=== PATIENT | female | born 1985 | race African-American/Black ===

== ENCOUNTER 2018-02-05 23:06 | Emergency (ER) | payer BC | END 2018-02-06 00:15 | disposition home or self-care (01) | LOC: ER 02-06 00:15 | DX: L02.415 Cutaneous abscess of right lower limb (principal) | CPT/HCPCS: 99283 ==

== ENCOUNTER → 2018-10-17 | Outpatient (CLI) | payer BC ==
[2018-02-05 23:40] VITALS: BP 120/67
[~2018-10-17] MED LIST: CEPH500C PO; SULF1TAB24 PO; TRAM50TA PO
[2018-10-17 11:38] LABS: BASO # 0.1 x10^3/uL (0.0-0.2); BASO % 1 % (0-3); EOS # 0.1 x10^3/uL (0.0-0.7); EOS % 1 % (0-3); HEMATOCRIT 33.9 % (36.0-47.0); HEMOGLOBIN 11.1 g/dL (12.0-15.5); LYMPH # 2.8 x10^3/uL (1.0-4.8); LYMPH % 30 % (24-48); MEAN CORPUSCULAR HEMOGLOBIN 25 pg (25-35); MEAN CORPUSCULAR HGB CONC 33 g/dL (31-37); MEAN CORPUSCULAR VOLUME 77 fL (79-100); MONO # 0.5 x10^3/uL (0.0-1.1); MONO % 5 % (0-9); NEUT % 63 % (31-73); PLATELET COUNT 246 x10^3/uL (140-400); RED BLOOD COUNT 4.43 x10^6/uL (3.50-5.40); RED CELL DISTRIBUTION WIDTH 18.3 % (11.5-14.5); WHITE BLOOD COUNT 9.6 x10^3/uL (4.0-11.0)
== END | disposition home or self-care (01) ==
LOC: LAB 11:16
PROVIDERS: ATTEND Physician Assistant
DX: L73.2 Hidradenitis suppurativa (principal)
CPT/HCPCS: 36415; 84702; 85025

== ENCOUNTER 2019-03-11 13:26 | Emergency (ER) | payer BC ==
[~2019-03-11] VITALS: Ht 177.8 cm; Wt 113.4 kg
[2019-03-11 13:48] VITALS: BP 115/71
--- NOTE | 2019-03-11 15:17 | RAD ---
Three-view study of the right foot Clinical indications: Right foot pain at base of great toe from wearing high heels. FINDINGS: No acute fracture or dislocation or lytic process is evident. Prominent plantar spur of the calcaneus is seen. Mild hallucis valgus deformity and small medial exostosis of the distal first metatarsal is seen. IMPRESSION: Small bunion with overlying mild medial soft tissue swelling. No acute fracture. Plantar spur of the calcaneus. Electronically signed by: Quang Lott MD (03/11/2019 3:14 PM) [place] [id number]
--- NOTE | 2019-03-11 15:58 | PHYS DOC ---
Past Medical History Past Medical History: STD, Other Additional Past Medical Histor: HERPES Past Surgical History: No Surgical History Alcohol Use: Occasionally Drug Use: Marijuana Adult General Chief Complaint Chief Complaint: TOE PROBLEM HPI HPI 34 y/o female presents via POV to ER for c/o rt great toe and inner side of rt foot pain which she reports she woke up this morning having. She reports last night she wore new heels and went dancing and had no sxs last night. She denies any injury. She denies wounds. She reports she has been ambulatory but does have increased pain w/walking and weight bearing on rt foot. She reports she feels her inner side of right foot and great toe are swollen. LMP 02/13/19. Review of Systems Review of Systems Constitutional: Denies fever or chills [] Respiratory: Denies cough or shortness of breath [] Cardiovascular: No additional information not addressed in HPI [] GI: Denies nausea, vomiting Musculoskeletal: Reports rt inner foot/great toe pain Integument: Denies rash or skin lesions [] Neurologic: Denies focal weakness or sensory changes. Denies numbness/tingling All other systems were reviewed and found to be within normal limits, except as documented in this note. Allergies Allergies Allergies Coded Allergies Type Severity Reaction Last Updated Verified No Known Drug Allergies 12/23/14 No Physical Exam Physical Exam Constitutional: Well developed, well nourished, no acute distress, non-toxic appearance. [] HENT: Normocephalic, atraumatic, oropharynx moist Eyes: Pupils equal, conjunctiva normal, no discharge. [] Neck: Normal range of motion, supple Cardiovascular:Heart rate regular Lungs & Thorax: Resp. equal/nonlabored Skin: Warm, dry, no erythema, no rash. [] Extremities: No cyanosis, no clubbing, ROM intact. 2+ bilat. dorsalis pedis. Calf size symmetric bilat. nontender. Tender on palp. medial side of rt foot into rt great toe- swelling without ecchymosis/erythema. No wounds on rt foot. No tenderness on calcaneus. Lt lower extremity NL exam nontender Neurologic: Alert and oriented X 3, normal motor function, normal sensory function, no focal deficits noted. [] Psychologic: Affect normal, judgement normal, mood normal. [] Current Patient Data Vital Signs Vital Signs Date Time Temp Pulse Resp B/P (MAP) Pulse Ox O2 Delivery O2 Flow Rate FiO2 03/11/19 13:48 98.0 89 16 115/71 (86) 99 Room Air 98.0 EKG EKG [] Radiology/Procedures Radiology/Procedures PROCEDURE: FOOT RIGHT 3V Three-view study of the right foot Clinical indications: Right foot pain at base of great toe from wearing high heels. FINDINGS: No acute fracture or dislocation or lytic process is evident. Prominent plantar spur of the calcaneus is seen. Mild hallucis valgus deformity and small medial exostosis of the distal first metatarsal is seen. IMPRESSION: Small bunion with overlying mild medial soft tissue swelling. No acute fracture. Plantar spur of the calcaneus. Electronically signed by: Ayala Lott MD (03/11/2019 3:14 PM) [place] [id number] DICTATED and SIGNED BY: AYALA LOTT MD DATE: 03/11/19 151 Course & Med Decision Making Course & Med Decision Making Pertinent Imaging studies reviewed. (See chart for details) Pt was evaluated in the ER for c/o rt foot/great toe pain after a night of dancing and wearing new heels. Xray of rt foot with reports of sm. bunion overlying medial soft tissue swelling, bone spur on calcaneus otherwise no acute findings. Pt had no tenderness on palp. of calcaneus. Xray results were discussed with pt along with discharge plan. Pt had no hx of gout and exam neg. for erythema. Pt will have spencer wrap and post op shoe applied prior to d/c. Discussed if sxs persist f/u with orthopedic doctor or podiatry advised for further care. Pt was offered tylenol/ibuprofen while in the ER and preferred no meds. She remains PMS intact on re-eval in rt lower extremity and has been ambulatory with steady unassisted gait. Education provided on s&s to return to ER for and d/c instructions were discussed. Derrick Disclaimer Derrick Disclaimer This electronic medical record was generated, in whole or in part, using a voice recognition dictation system. Departure Departure Impression: Primary Impression: Foot pain, right Additional Impression: Bunion of great toe of right foot Disposition: 01 HOME, SELF-CARE Condition: STABLE Referrals: NO PCP (PCP) Patient Instructions: Bunion (Hallux Valgus)-SportsMed Additional Instructions: Wear the Spencer wrap and use the postop shoe for support for your right foot pain. You can try [id number] bunion support for additional pain relief. If symptoms persist follow-up with orthopedics or podiatry for further care and reevaluation. Tylenol and/or ibuprofen as needed for pain relief as directed on container. Problem Qualifiers RAJ VAZQUEZ APRN Mar 11, 2019 15:58
== END 2019-03-11 16:04 | disposition home or self-care (01) ==
LOC: ER 13:26
DX: M21.611 Bunion of right foot (principal); M77.31 Calcaneal spur, right foot
CPT/HCPCS: 73630; 99284

== ENCOUNTER → 2019-07-08 | Outpatient (CLI) | payer BC ==
[2019-07-08 11:34] LABS: BASO % 0 % (0-3); EOS # 0.1 x10^3/uL (0.0-0.7); EOS % 1 % (0-3); HEMATOCRIT 30.6 % (36.0-47.0); HEMOGLOBIN 10.2 g/dL (12.0-15.5); LYMPH # 2.7 x10^3/uL (1.0-4.8); LYMPH % 29 % (24-48); MEAN CORPUSCULAR HEMOGLOBIN 26 pg (25-35); MEAN CORPUSCULAR HGB CONC 33 g/dL (31-37); MEAN CORPUSCULAR VOLUME 79 fL (79-100); MONO # 0.5 x10^3/uL (0.0-1.1); MONO % 5 % (0-9); NEUT # 5.8 x10^3/uL (1.8-7.7); NEUT % 64 % (31-73); PLATELET COUNT 277 x10^3/uL (140-400); RED BLOOD COUNT 3.87 x10^6/uL (3.50-5.40); RED CELL DISTRIBUTION WIDTH 16.1 % (11.5-14.5); WHITE BLOOD COUNT 9.1 x10^3/uL (4.0-11.0)
[2019-07-08 12:28] LABS: ALBUMIN 2.9 g/dL (3.4-5.0); DIRECT BILIRUBIN 0.1 mg/dL (0.0-0.2); TOTAL BILIRUBIN 0.5 mg/dL (0.2-1.0); TOTAL PROTEIN 8.7 g/dL (6.4-8.2)
== END | disposition home or self-care (01) ==
LOC: LAB 11:10
PROVIDERS: ATTEND Physician Assistant
DX: L73.2 Hidradenitis suppurativa (principal)
CPT/HCPCS: 36415; 80076; 85025

== ENCOUNTER → 2019-12-01 | Outpatient (CLI) | payer BC ==
[2019-12-01 12:08] LABS: BASO # 0.1 x10^3/uL (0.0-0.2); BASO % 1 % (0-3); EOS # 0.2 x10^3/uL (0.0-0.7); EOS % 1 % (0-3); HEMATOCRIT 31.3 % (36.0-47.0); HEMOGLOBIN 10.1 g/dL (12.0-15.5); LYMPH # 2.7 x10^3/uL (1.0-4.8); LYMPH % 20 % (24-48); MEAN CORPUSCULAR HEMOGLOBIN 25 pg (25-35); MEAN CORPUSCULAR HGB CONC 32 g/dL (31-37); MEAN CORPUSCULAR VOLUME 77 fL (79-100); MONO # 0.7 x10^3/uL (0.0-1.1); MONO % 5 % (0-9); NEUT # 9.7 x10^3/uL (1.8-7.7); NEUT % 73 % (31-73); PLATELET COUNT 317 x10^3/uL (140-400); RED BLOOD COUNT 4.08 x10^6/uL (3.50-5.40); RED CELL DISTRIBUTION WIDTH 17.5 % (11.5-14.5); WHITE BLOOD COUNT 13.3 x10^3/uL (4.0-11.0)
[2019-12-01 12:26] LABS: ALBUMIN 2.9 g/dL (3.4-5.0); DIRECT BILIRUBIN 0.1 mg/dL (0.0-0.2); TOTAL BILIRUBIN 0.2 mg/dL (0.2-1.0); TOTAL PROTEIN 9.1 g/dL (6.4-8.2)
== END | disposition home or self-care (01) ==
LOC: LAB 11:43
PROVIDERS: ATTEND Physician Assistant
DX: L73.2 Hidradenitis suppurativa (principal)
CPT/HCPCS: 36415; 80076; 85025; 86481

== ENCOUNTER → 2020-06-30 | Outpatient (CLI) | payer BC ==
--- NOTE | 2020-06-30 16:16 | RAD ---
AP and Lateral Views of the Chest 06/30/2020 12:00 AM Indication: Reason: HIDRADENITIS SUPPURATIVE. SWITCHING MEDICATIONS. / Spl. Instructions: / History: Comparison: Suppurative hidradenitis Findings: There is no focal consolidation or infiltrate identified. The cardiomediastinal silhouette is within normal limits. There is no evidence of pneumothorax or pleural effusion. No acute osseous abnormalities are identified. Impression: No evidence of acute cardiopulmonary process. Electronically signed by: Fabian Zabala MD (06/30/2020 4:13 PM) [id number]
== END | disposition home or self-care (01) ==
LOC: RAD 14:51
DX: L73.2 Hidradenitis suppurativa (principal)
CPT/HCPCS: 71046

== ENCOUNTER → 2020-07-14 | Outpatient (CLI) | payer BC ==
[2020-07-14 15:19] LABS: ALBUMIN 2.4 g/dL (3.4-5.0); ALBUMIN/GLOBULIN RATIO 0.3 (1.0-1.7); CALCIUM 8.7 mg/dL (8.5-10.1); CREATININE 0.8 mg/dL (0.6-1.0); GFR 98.8; POTASSIUM 4.2 mmol/L (3.5-5.1); TOTAL BILIRUBIN 0.2 mg/dL (0.2-1.0); TOTAL PROTEIN 9.6 g/dL (6.4-8.2)
== END ==
LOC: LAB 14:07
PROVIDERS: ATTEND Physician Assistant
DX: L73.2 Hidradenitis suppurativa (principal)
CPT/HCPCS: 36415; 80053

== ENCOUNTER 2020-07-19 17:43 | Emergency (ER) | payer BC ==
[~2020-07-19] VITALS: Ht 177.8 cm; Wt 107.2 kg
[2020-07-19] MEDS ORDERED: IV NORMAL SALINE 1000ML BAG 1,000 ML IV ONE (18:45)
[2020-07-19 18:59] LABS: BASO % 0 % (0-3); EOS # 0.2 x10^3/uL (0.0-0.7); EOS % 1 % (0-3); HEMATOCRIT 25.4 % (36.0-47.0); HEMOGLOBIN 8.3 g/dL (12.0-15.5); LYMPH # 2.2 x10^3/uL (1.0-4.8); LYMPH % 16 % (24-48); MEAN CORPUSCULAR HEMOGLOBIN 23 pg (25-35); MEAN CORPUSCULAR HGB CONC 33 g/dL (31-37); MEAN CORPUSCULAR VOLUME 72 fL (79-100); MONO # 0.7 x10^3/uL (0.0-1.1); MONO % 5 % (0-9); NEUT # 10.5 x10^3/uL (1.8-7.7); NEUT % 77 % (31-73); PLATELET COUNT 418 x10^3/uL (140-400); RED BLOOD COUNT 3.54 x10^6/uL (3.50-5.40); RED CELL DISTRIBUTION WIDTH 18.7 % (11.5-14.5); WHITE BLOOD COUNT 13.6 x10^3/uL (4.0-11.0)
[2020-07-19 19:10] LABS: CALCIUM 8.7 mg/dL (8.5-10.1); CREATININE 0.8 mg/dL (0.6-1.0); GFR 98.8; POTASSIUM 3.3 mmol/L (3.5-5.1)
[2020-07-19] MEDS ORDERED: ASPIRIN 325 MG TABLET PO ONE (19:15)
[2020-07-19 19:16] LABS: ALBUMIN 2.3 g/dL (3.4-5.0); ALBUMIN/GLOBULIN RATIO 0.3 (1.0-1.7); MAGNESIUM 1.9 mg/dL (1.8-2.4); TOTAL BILIRUBIN 0.2 mg/dL (0.2-1.0); TOTAL PROTEIN 10.2 g/dL (6.4-8.2)
[2020-07-19 19:17] LABS: PLT ESTIMATE INCREASED (ADEQUATE)
[2020-07-19 19:18] LABS: ANISOCYTOSIS SLIGHT; HYPOCHROMIA SLIGHT; POIKILOCYTOSIS SLIGHT
[2020-07-19 19:19] LABS: MICROCYTOSIS PRESENT
--- NOTE | 2020-07-19 19:51 | PHYS DOC ---
Past Medical History Past Medical History: STD, Other Additional Past Medical Histor: HERPES Past Surgical History: No Surgical History Smoking Status: Never Smoker Alcohol Use: Occasionally Drug Use: Marijuana General Adult EDM: Chief Complaint: CHEST PAIN HPI: HPI: Mrs. Rowan is a 35-year-old -[place] female who presents with a one-week history of chest pain. She describes this pain as constant but variable. Her pain is at least a 5 out of 10 and spikes to 10 out of 10. Episodes seem to be triggered by certain positions particularly rolling over in bed because of increased pain. She reports no alleviating factors, with ibuprofen only giving no relief. She reports that her chest pain is not associated with exertion. She describes the pain as a sharp substernal chest pain. Patient denies any history of GERD. Patient does report a vague history of having bilateral back pain, and having a unilateral calf episode of calf pain that resolved 1 year ago . Past medical history: Sickle cell trait, hydroadneitis Supprtiva follows with dermatology. Patient follows with a locomotive firer for chronic anemia. Past surgical history: None Family history: 1 older sister with sickle cell disease. Review of Systems: Review of Systems: Constitutional: Denies fever or chills Eyes: Denies redness or eye pain, HENT: Denies nasal congestion or sore throat Respiratory: Denies cough or shortness of breath denies any sick contacts. Cardiovascular: Denies chest pain or palpitations GI: Denies abdominal pain, nausea, or vomiting : Denies dysuria or hematuria Musculoskeletal: Denies back pain or joint pain Integument: Denies rash or skin lesions Neurologic: Denies headache, focal weakness or sensory changes Complete systems were reviewed and found to be within normal limits, except as documented in this note. Heart Score: HEART Score for Chest Pain: HEART Score for Chest Pain Response (Comments) Value History Slighlty/Non-Suspicious 0 ECG Normal 0 Age < 45 0 Risk Factors 1 or 2 Risk Factors 1 Troponin < Normal Limit 0 Total 1 Risk Factors: Risk Factors: DM, Current or recent (<one month) smoker, HTN, HLP, family hi story of CAD, obesity. Risk Scores: Score 0 - 3: 2.5% MACE over next 6 weeks - Discharge Home Score 4 - 6: 20.3% MACE over next 6 weeks - Admit for Clinical Observation Score 7 - 10: 72.7% MACE over next 6 weeks - Early Invasive Strategies Current Medications: Current Medications Medications (Trade) Dose Ordered Sig/[facility] Start Time Stop Time Status Last Admin Dose Admin Aspirin (Rudy Aspirin) 325 mg 1X ONCE 07/19/20 19:15 07/19/20 19:16 DC 07/19/20 19:00 325 MG Sodium Chloride 1,000 ml @ 1,000 mls/hr 1X ONCE 07/19/20 18:45 07/19/20 19:44 07/19/20 18:59 1,000 MLS/HR Allergies: Allergies: Allergies Coded Allergies Type Severity Reaction Last Updated Verified No Known Drug Allergies 12/23/14 No Physical Exam: PE: Constitutional: Well developed, well nourished, no acute distress, non-toxic appearance HENT: Normocephalic, atraumatic. Cranial nerves II through XII grossly intact bilaterally. Eyes: PERRL, EOMI, conjunctiva normal, no discharge Neck: Normal range of motion, no tenderness, supple, no carotid bruit Lungs & Thorax: Bilateral breath sounds clear to auscultation, no wheezing Heart: Regular rate and rhythm no murmurs. S1-S2 normal, S3 and S4 not present. Abdomen: Soft, no tenderness. Bowel sounds present all 4 quadrants. Skin: Warm, dry, no erythema, no rash. Patient has extensive infectious cysts, seem to be draining bilaterally on her chest located in the folds beneath her breasts. These are very tender to palpation however she describes this pain as different than the chest pain she is experiencing. Back: No tenderness, no CVA tenderness Extremities: No tenderness, ROM intact, no edema. 2+ pulses in all 4 extremities. Neurologic: Alert and oriented X 3, normal motor function, normal sensory function, no focal deficits noted Psychologic: Affect normal, judgment normal Current Patient Data: Labs: Laboratory Tests Test 07/19/20 18:50 White Blood Count 13.6 x10^3/uL (4.0-11.0) H Red Blood Count 3.54 x10^6/uL (3.50-5.40) Hemoglobin 8.3 g/dL (12.0-15.5) L Hematocrit 25.4 % (36.0-47.0) L Mean Corpuscular Volume 72 fL (79-100) L Mean Corpuscular Hemoglobin 23 pg (25-35) L Mean Corpuscular Hemoglobin Concent 33 g/dL (31-37) Red Cell Distribution Width 18.7 % (11.5-14.5) H Platelet Count 418 x10^3/uL (140-400) H Neutrophils (%) (Auto) 77 % (31-73) H Lymphocytes (%) (Auto) 16 % (24-48) L Monocytes (%) (Auto) 5 % (0-9) Eosinophils (%) (Auto) 1 % (0-3) Basophils (%) (Auto) 0 % (0-3) Neutrophils # (Auto) 10.5 x10^3/uL (1.8-7.7) H Lymphocytes # (Auto) 2.2 x10^3/uL (1.0-4.8) Monocytes # (Auto) 0.7 x10^3/uL (0.0-1.1) Eosinophils # (Auto) 0.2 x10^3/uL (0.0-0.7) Basophils # (Auto) 0.0 x10^3/uL (0.0-0.2) Platelet Estimate Increased (ADEQUATE) Hypochromasia Slight Poikilocytosis Slight Anisocytosis Slight Microcytosis Present D-Dimer (Louise) 3.32 ug/mlFEU (0.00-0.50) H Sodium Level 133 mmol/L (136-145) L Potassium Level 3.3 mmol/L (3.5-5.1) L Chloride Level 100 mmol/L (98-107) Carbon Dioxide Level 28 mmol/L (21-32) Anion Gap 5 (6-14) L Blood Urea Nitrogen 9 mg/dL (7-20) Creatinine 0.8 mg/dL (0.6-1.0) Estimated GFR (Cockcroft-Gault) 98.8 BUN/Creatinine Ratio 11 (6-20) Glucose Level 100 mg/dL (70-99) H Calcium Level 8.7 mg/dL (8.5-10.1) Magnesium Level 1.9 mg/dL (1.8-2.4) Total Bilirubin 0.2 mg/dL (0.2-1.0) Aspartate Amino Transferase (AST) 13 U/L (15-37) L Alanine Aminotransferase (ALT) 14 U/L (14-59) Alkaline Phosphatase 60 U/L (46-116) Troponin I Quantitative < 0.017 ng/mL (0.000-0.055) EL-Aww-P-Type Natriuretic Peptide 247 pg/mL (0-124) H Total Protein 10.2 g/dL (6.4-8.2) H Albumin 2.3 g/dL (3.4-5.0) L Albumin/Globulin Ratio 0.3 (1.0-1.7) L Lipase 45 U/L (73-393) L Laboratory Tests 07/19/20 18:50 Laboratory Tests 07/19/20 18:50 Vital Signs: Vital Signs Date Time Temp Pulse Resp B/P (MAP) Pulse Ox O2 Delivery O2 Flow Rate FiO2 07/19/20 18:27 88 18 121/77 (92) 97 Room Air EKG: EKG: @1754 NSR at 95bpm, NO ST elevation, QRS 84ms, QT/QTc 344/435ms Radiology/Procedures: Radiology/Procedures: PROCEDURE: CT ANGIOGRAPHY CHEST Exam: CT of chest with contrast INDICATION: Chest pain TECHNIQUE: Sequential axial images through the chest obtained following the administration 100 mL of Omni 350 IV contrast. Sagittal and coronal reformatted images were reconstructed from the axial data and reviewed. Comparisons: None FINDINGS: Visualized portions of the thyroid are unremarkable. No enlarged mediastinal lymph nodes are identified. Heart size is normal. No pericardial effusion. Thoracic aorta has a normal course and caliber. Pulmonary artery is not enlarged. No pulmonary embolus identified within the main or lobar pulmonary arteries. Evaluation distally is limited secondary to contrast bolus timing. Airways are patent. No consolidation or pneumothorax. No suspicious osseous lesions or acute fractures. No pleural effusion or thickening. Visualized upper abdomen is unremarkable. No suspicious osseous lesions or acute fractures. IMPRESSION: No pulmonary embolus identified within the main or lobar pulmonary arteries. Exposure: One or more of the following in the visualized dose reduction techniques were utilized for this examination: 1. Automated exposure control 2. Adjustment of the MA and/or KV according to patient size 3. Use of iterative of reconstructive technique Electronically signed by: Chaya Courtney MD (07/19/2020 8:50 PM) [id number] Course & Med Decision Making: Course & Med Decision Making Differential diagnosis: Sickle cell trait/acute chest syndrome. Dragon Disclaimer: Dragon Disclaimer: This electronic medical record was generated, in whole or in part, using a voice recognition dictation system. Departure Departure Impression: Primary Impression: Chest pain Qualified Codes: R07.9 - Chest pain, unspecified Additional Impression: Hidradenitis suppurativa Disposition: HOME, SELF-CARE Condition: STABLE Referrals: TIM BROWNING APRN (PCP) HEIDI ROYAL MD Patient Instructions: Chest Pain (Nonspecific), [id number], Hidradenitis Suppurativa, Sweat Gland Abscess Scripts Mupirocin (MUPIROCIN OINTMENT) 22 Gm Oint...g. 1 KRISTAL TP TID for WOUND CARE, #1 TUBE Prov: LALY VALLES DO 07/19/20 Clindamycin Hcl (CLINDAMYCIN HCL) 300 Mg Capsule 1 CAP PO TID for Infection for 7 Days, #21 CAP Prov: LALY VALLES DO 07/19/20 Justicifation of Admission Dx: Justifications for Admission: Justification of Admission Dx: N/A LALY VALLES DO Jul 19, 2020 19:51
[2020-07-19] MEDS ORDERED: IOHEXOL 350 MG/ML 100 ML VIAL. IV ONE (20:00)
[2020-07-19] MEDS ORDERED: CONTRAST GIVEN. MC PRN (20:00)
[2020-07-19 20:14] LABS: BILIRUBIN,URINE NEGATIVE (NEG); CLARITY,URINE CLEAR; COLOR,URINE YELLOW; NITRITE,URINE NEGATIVE (NEG); PROTEIN,URINE NEGATIVE (NEG-TRACE); UROBILINOGEN,URINE 0.2 mg/dL (0.2 mg/dL)
[2020-07-19] MEDS ORDERED: POTASSIUM CHLORIDE 20 MEQ TABLET.ER. PO ONE (20:15)
[2020-07-19 20:18] LABS: SQUAMOUS EPITHELIAL CELL,UR MOD /LPF
[2020-07-19 20:19] LABS: TRICHOMONAS,URINE PRESENT
[2020-07-19 20:20] LABS: BACTERIA,URINE FEW /HPF (0-FEW); RBC,URINE OCC /HPF (0-2)
--- NOTE | 2020-07-19 20:52 | RAD ---
Exam: CT of chest with contrast INDICATION: Chest pain TECHNIQUE: Sequential axial images through the chest obtained following the administration 100 mL of Omni 350 IV contrast. Sagittal and coronal reformatted images were reconstructed from the axial data and reviewed. Comparisons: None FINDINGS: Visualized portions of the thyroid are unremarkable. No enlarged mediastinal lymph nodes are identified. Heart size is normal. No pericardial effusion. Thoracic aorta has a normal course and caliber. Pulmonary artery is not enlarged. No pulmonary embolus identified within the main or lobar pulmonary arteries. Evaluation distally is limited secondary to contrast bolus timing. Airways are patent. No consolidation or pneumothorax. No suspicious osseous lesions or acute fractures. No pleural effusion or thickening. Visualized upper abdomen is unremarkable. No suspicious osseous lesions or acute fractures. IMPRESSION: No pulmonary embolus identified within the main or lobar pulmonary arteries. Exposure: One or more of the following in the visualized dose reduction techniques were utilized for this examination: 1. Automated exposure control 2. Adjustment of the MA and/or KV according to patient size 3. Use of iterative of reconstructive technique Electronically signed by: Chaya Courtney MD (07/19/2020 8:50 PM) [id number]
[2020-07-19] MEDS ORDERED: CLIN300C8 PO (22:22)
[2020-07-19] MEDS ORDERED: MUPI22OI2 TP (22:22)
[2020-07-19] MEDS ORDERED: CLINDAMYCIN HCL 150 MG CAPSULE. PO ONE (23:00)
[2020-07-19 23:06] VITALS: BP 127/73
--- NOTE | 2020-07-20 07:32 | EKG ---
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
== END 2020-07-19 23:12 | disposition home or self-care (01) ==
LOC: ER 17:43
DX: R07.89 Other chest pain (principal); L73.2 Hidradenitis suppurativa
CPT/HCPCS: 36415; 71275; 80053; 81001; 81025; 83690; 83735; 83880; 84484; 85025; 85379; 87086; 93005; 96360; 96361; 99285; J7030; Q9967

== ENCOUNTER 2020-09-28 03:40 | Emergency (ER) | payer BC ==
[~2020-09-28] VITALS: Ht 177.8 cm; Wt 104.5 kg
[~2020-09-28 03:40] MED LIST changes: +CLIN300C8 PO; +MUPI22OI2 TP
[2020-09-28 03:45] VITALS: BP 144/86
[2020-09-28] MEDS ORDERED: CYCL10TA2 PO ×2 (04:14→04:31)
--- NOTE | 2020-09-28 04:16 | PHYS DOC ---
Past Medical History Past Medical History: No Pertinent History Additional Past Medical Histor: HERPES, sickle cell trait Past Surgical History: No Surgical History Smoking Status: Never Smoker Alcohol Use: None Drug Use: Marijuana General Adult EDM: Chief Complaint: WRIST PAIN HPI: HPI: 35-year-old female past medical history significant for hidradenitis suppurativa, recently started on Remicade by her services executive, presents to the ED with complaints of left wrist pain and swelling that started earlier today, patient states she has been unable to sleep and had no relief with ibuprofen. Patient states for the past few days she initially had right wrist swelling that has now moved to the left side (right wrist pain has resolved). Patient is right-hand dominant. Called her services executive office and was told this is a common side effect of her Remicade, to apply heating pads, [id number] analgesia and return to ED if pain worsens. Remicade is monthly IV injections, last given 09/21. No prior history of septic joint, gout, pseudogout. No history of prior joint pain. No associated trauma, neck pain or radiculopathy. No abnormal vaginal discharge, dysuria or hematuria or concern for STI. No FH neurologic diseases. Review of Systems: Review of Systems: Constitutional: Denies fever or chills. [] Eyes: Denies change in visual acuity. [] HENT: Denies nasal congestion or sore throat. [] Respiratory: Denies cough or shortness of breath. [] Cardiovascular: Denies chest pain or edema. [] GI: Denies abdominal pain, nausea, vomiting, bloody stools or diarrhea. [] : Denies dysuria. [] Musculoskeletal: Denies back pain or left shoulder midline neck pain Integument: Denies rash. [] Neurologic: Denies headache, focal weakness or sensory changes. [] Endocrine: Denies polyuria or polydipsia. [] Lymphatic: Denies swollen glands. [] Psychiatric: Denies depression or anxiety. [] Heart Score: Risk Factors: Risk Factors: DM, Current or recent (<one month) smoker, HTN, HLP, family history of CAD, obesity. Risk Scores: Score 0 - 3: 2.5% MACE over next 6 weeks - Discharge Home Score 4 - 6: 20.3% MACE over next 6 weeks - Admit for Clinical Observation Score 7 - 10: 72.7% MACE over next 6 weeks - Early Invasive Strategies Allergies: Allergies: Allergies Coded Allergies Type Severity Reaction Last Updated Verified No Known Drug Allergies 12/23/14 No Physical Exam: PE: Constitutional: Well developed, well nourished, no acute distress, non-toxic appearance. [] HENT: Normocephalic, atraumatic, Eyes:EOMI, conjunctiva normal, Neck: Normal range of motion, supple, Cardiovascular: S1 and S2 present Lungs & Thorax: Speaking in full sentences, bilateral equal chest rise Skin: Warm, dry, no erythema, no rash or crepitus Extremities: pain over left dorsal wrist and left thumb tendon or thumb with flexion extension and Shahzad's test, some wrist edema, ttp over left mcps- no effusions, left thumb in adduction, pain with abduction, no radicular pain, no localized pain in snuffbox or or lunate-wrist pain is diffuse Vascular: Equal radial pulses, normal skin turgor, equal warmth Neurologic: Alert and oriented X 3, normal motor function, normal sensory function, no focal deficits noted. [] Psychologic: Affect normal, judgement normal, mood normal. [] Current Patient Data: Vital Signs: Vital Signs Date Time Temp Pulse Resp B/P (MAP) Pulse Ox O2 Delivery O2 Flow Rate FiO2 09/28/20 03:45 98.3 55 13 144/86 (105) 100 Room Air 98.3 EKG: EKG: [] Radiology/Procedures: Radiology/Procedures: []IMAGING REPORT Signed PATIENT: ANGELICA VIRGEN ACCOUNT: [id number] : 1985 LOCATION: ER AGE: 35 SEX: F EXAM STATUS: DEP ER ORD. PHYSICIAN: RAJ CANTU DO REASON: wrist stiffness PROCEDURE: WRIST 3V LEFT Study: CR WRIST 3V LEFT Indication: Wrist stiffness. Comparison: None. Findings: No acute fracture. No traumatic malalignment. Mild ulnar minus variance measuring approximately 3.5 mm. On the oblique and lateral views the lunate appears more sclerotic relative to the additional carpal bones but this is less notable on the PA view suggesting this appearance to be from summation artifact. The morphology of the lunate is normal. Maintained joint spaces. Unremarkable soft tissues. Impression: 1. No acute osseous abnormality. 2. Mild ulnar minus variance. Correlate for symptoms of ulnar impingement. 3. The lunate appears sclerotic on the oblique and lateral views but this is favored secondary to summation artifact. Lunate morphology is normal. Note is made however that ulnar impingement can be associated with lunate avascular necrosis. If there is ongoing concern, nonemergent/outpatient MRI could be performed. Electronically signed by: TATYANA INMAN MD (09/28/2020 5:13 AM) [id number] DICTATED and SIGNED BY: TATYANA INMAN MD DATE: 09/28/20 0513 Course & Med Decision Making: Course & Med Decision Making Pertinent Labs and Imaging studies reviewed. (See chart for details) Concern for atraumatic wrist and joint pain as possible medication side effect versus de Quervain's tenosynovitis. Patient declined [place] in the ED but elected for Valium. Mother will drive her home. Wrist splint given. Will recommend Tylenol ibuprofen as needed and to discuss benefits versus adverse effects of continuing Remicade medication with services executive. Strict ED return precautions were given for fever, worsening pain or neurologic deficits. Encouraged urgent outpatient follow-up with PMD and patient's services executive. Life-threatening processes were considered but are low suspicion at this time, given history and physical exam. Pt was educated on all prescription medications and adverse effects. All patient's questions were answered and pt was stable at time of discharge. Life/limb-threatening differential includes but is not limited to, avascular necrosis, septic arthritis, malignancy, fracture/ligamentous injury/overuse, decompression sickness, seronegative spondyloarthropathies, Lyme disease, lupus, arthritis differentials, gout/pseudogout or decompression sickness. I spoken with the patient and her caregivers. I explained the patient's condition, diagnoses and treatment plan based on the information available to me at this time. I have answered the patient and her caregiver's questions and addressed any concerns. The patient and her caregivers have a good unders tanding of patient's diagnosis, condition and treatment plan as can be expected at this point. Vital signs have been stable. Patient's condition is stable and appropriate for discharge from the emergency department. Patient will pursue further outpatient evaluation with primary care physician or other designated or consulting physician as outlined in the discharge instructions. The patient and/or caregivers are agreeable to this plan of care and follow-up instructions have been explained in detail. The patient and/or caregivers have received these instructions in written form and have expressed an understanding of the discharge instructions. The patient and/or caregivers are aware that any significant change of condition or worsening of symptoms should prompt immediate return to this or the closest emergency department or call to 911. Derrick Disclaimer: Derrick Disclaimer: This electronic medical record was generated, in whole or in part, using a voice recognition dictation system. Departure Departure Impression: Primary Impression: Arthralgia of left wrist Disposition: 01 DC HOME SELF CARE/HOMELESS Condition: STABLE Referrals: TIM BROWNING APRN (PCP) in 3-5 days or in 7 days with your services executive Patient Instructions: RICE - Routine Care for Injuries, Wrist Pain, Wrist Splint Additional Instructions: EMERGENCY DEPARTMENT GENERAL DISCHARGE INSTRUCTIONS Thank you for coming to [facility] Emergency Department (ED) today and trusting us with you care. We trust that you had a positive experience in our Emergency Department. If you wish to speak to the department management, you may call the Director at [phone]. YOUR FOLLOW UP INSTRUCTIONS ARE FOLLOWS: 1. Do you have a private Doctor? If you do not have a private doctor, please ask for a resource list of physicians or clinics that may be able to assist you with follow up care. 2. The Emergency Physicain has interpreted your x-rays. The X-Ray specialist will also review them. If there is a change in the findings, you will be notified in 48 hours when at all possible. 3. A lab test or culture has been done, your results will be reviewed and you will be notified if you need a change in treatment. ADDITIONAL INSTRUCTIONS AND INFORMATION: 1. Your care today has been supervised by a physician who is specially trained in emergency care. Many problems require more than one evaluation for a complete diagnosis and treatment. We recommend that you schedule your follow up appointment as recommended to ensure complete treatment of you illness or injury. If you are unable to obtain follow up care and continue to have a problem, or if your condition worsens, we recommend that you return to the ED. 2. We are not able to safely determine your condition over the phone nor are we able to give sound medical advice over the phone. For these safety reasons, if you call for medical advice we will ask you to come to the ED for further evaluation. 3. If you have any questions regarding these discharge instructions please call the ED at [phone]. SAFETY INFORMATION: In the interest of safety, wellness, and injury prevention; we encourage you to wear your sealbelt, if you smoke; quite smoking, and we encourage family to use a protective helmet for bicycling and other sporting events that present an increased risk for head injury. IF YOUR SYMPTOMS WORSEN OR NEW SYMPTOMS DEVELOP, OR YOU HAVE CONCERNS ABOUT YOUR CONDITION; OR IF YOUR CONDITION WORSENS WHILE YOU ARE WAITING FOR YOUR FOLLOW UP APPOINTMENT; EITHER CONTACT YOUR PRIMARY CARE DOCTOR, THE PHYSICIAN WHOSE NAME AND NUMBER YOU WERE GIVEN, OR RETURN TO THE ED IMMEDIATELY. Scripts Cyclobenzaprine Hcl (CYCLOBENZAPRINE HCL) 10 Mg Tablet 1 TAB PO TID for 5 Days, #15 TAB You can also take 1/2 tablet up to 6 times per day as needed for pain Prov: RAJ CANTU DO 09/28/20 RAJ CANTU DO Sep 28, 2020 04:16
[2020-09-28] MEDS ORDERED: diazePAM 5 MG TABLET PO ONE (04:30)
--- NOTE | 2020-09-28 05:16 | RAD ---
Study: CR WRIST 3V LEFT Indication: Wrist stiffness. Comparison: None. Findings: No acute fracture. No traumatic malalignment. Mild ulnar minus variance measuring approximately 3.5 mm. On the oblique and lateral views the lunate appears more sclerotic relative to the additional carpal bones but this is less notable on the PA view suggesting this appearance to be from summation artifact. The morphology of the lunate is normal. Maintained joint spaces. Unremarkable soft tissues. Impression: 1. No acute osseous abnormality. 2. Mild ulnar minus variance. Correlate for symptoms of ulnar impingement. 3. The lunate appears sclerotic on the oblique and lateral views but this is favored secondary to summation artifact. Lunate morphology is normal. Note is made however that ulnar impingement can be associated with lunate avascular necrosis. If there is ongoing concern, nonemergent/outpatient MRI could be performed. Electronically signed by: TATYANA INMAN MD (09/28/2020 5:13 AM) [id number]
== END 2020-09-28 04:35 | disposition home or self-care (01) ==
LOC: ER 03:40
DX: M25.532 Pain in left wrist (principal); R60.0 Localized edema; F12.90 Cannabis use, unspecified, uncomplicated
CPT/HCPCS: 29125; 73110; 99283

== ENCOUNTER → 2021-01-23 | Outpatient (CLI) | payer BC ==
[~2021-01-23] MED LIST changes: -CLIN300C8 PO; +CLIN300C9 PO; +CYCL10TA2 PO
[2021-01-23 13:22] LABS: BILIRUBIN,URINE NEGATIVE (NEG); CLARITY,URINE CLEAR; COLOR,URINE YELLOW; NITRITE,URINE NEGATIVE (NEG); PH,URINE 5.5 (<5.0-8.0); PROTEIN,URINE NEGATIVE (NEG-TRACE); UROBILINOGEN,URINE 0.2 mg/dL (0.2 mg/dL)
[2021-01-23 13:35] LABS: BACTERIA,URINE 0 /HPF (0-FEW); RBC,URINE 0 /HPF (0-2); WBC,URINE 0 /HPF (0-4)
== END ==
LOC: LAB 12:41
PROVIDERS: ATTEND Physician Assistant
DX: L73.2 Hidradenitis suppurativa (principal)
CPT/HCPCS: 81001

== ENCOUNTER → 2021-09-27 | Outpatient (CLI) | payer BC ==
[~2021-09-27] MED LIST changes: +CLIN-94 PO; -CLIN300C9 PO; +CYCL10TA19 PO; -CYCL10TA2 PO
[2021-09-27 15:40] LABS: BILIRUBIN,URINE NEGATIVE (NEG); CLARITY,URINE CLEAR; COLOR,URINE YELLOW; NITRITE,URINE NEGATIVE (NEG); PH,URINE 7.5 (<5.0-8.0); PROTEIN,URINE NEGATIVE (NEG-TRACE)
[2021-09-27 15:50] LABS: BACTERIA,URINE FEW /HPF (0-FEW)
[2021-09-27 15:51] LABS: RBC,URINE 0 /HPF (0-2); WBC,URINE 20-40 /HPF (0-4)
== END ==
LOC: LAB 15:01
PROVIDERS: ATTEND Physician Assistant
DX: L73.2 Hidradenitis suppurativa (principal)
CPT/HCPCS: 81001; 87086